=== PATIENT | male | born 1945 | race Caucasian/White ===

== ENCOUNTER 2018-07-10 17:05 | Inpatient (IN) | payer MEDICARE, OTHER ==
[2018-07-10 18:39] LABS: CKMB 1.7 ng/mL (0-6.6); Troponin I Less than 0.010 ng/mL (< 0.028)
[2018-07-10] MEDS ORDERED: Ondansetron ODT 4 MG TAB PO PRN (19:41)
[2018-07-10] MEDS ORDERED: Famotidine 20 MG TAB PO SCH (21:00)
[2018-07-10] MEDS: Sodium Chloride 0.9% 1,000 ML IV SCH (21:16)
[2018-07-10 21:36] LABS: Troponin I 0.015 ng/mL (< 0.028)
[2018-07-10] MEDS: Acetaminophen 325 MG TAB PO PRN (21:53)
[2018-07-10] MEDS: Nitroglycerin 2% Ointment 1 INCH/1 GM Packet TOP SCH (21:54)
[2018-07-10] MEDS: Heparin 5,000 UNITS/ML VIAL SC SCH (21:54)
[2018-07-11 00:23] VITALS: BMI 33.0
[2018-07-11 00:51] LABS: Troponin I 0.016 ng/mL (< 0.028)
--- NOTE | 2018-07-11 02:14 | HP ---
CHIEF COMPLAINT: Chest pain. HISTORIAN: The patient and . HISTORY OF PRESENT ILLNESS: This is a 73-year-old male with past medical history of spinal stenosis, CKD stage 3, hypertension, prostate enlargement, presented to ED with chief complaint of chest pain. Per the patient, chest pain was started on Thursday and pain started to radiate to his left shoulder and around his neck. Patient stated that on , he was in the grass at his yard. 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 The patient states that his chest pain is loc ated substernally 10/10 when it comes on and radiates to the left shoulder. The patient took tramado l which did not help. However, the patient states that morphine that was given to him at [facility] e relieve some of this pain. Patient's chest pain is exacerbated with inspiration. At this point, p atient denies any headaches, fevers, dizziness, nausea. The patient endorses vomiting x1 during the episode of chest pain on Thursday. REVIEW OF SYSTEMS: Positive for vomitus x1, chest pain, shortness of breath, and bilateral lower ext remity edema. FAMILY HISTORY: Reviewed and noncontributory. PAST MEDICAL HISTORY: Patient has BPH, spinal stenosis, CKD, hypertension, neck surgery. PAST SURGICAL HISTORY: Patient has rhinoplasty, bilateral knee replacement, carpal tunnel surgeries, C-spine, C4-C5 fusion and lumbar laminectomy. SOCIAL HISTORY: The patient denies any alcohol use, denies any illicit drug use, and denies any smok ing history. ALLERGIES: Patient is allergic to CODEINE. CURRENT MEDICATIONS: The patient is on tramadol 50 mg, metoprolol tartrate 50 mg, alfuzosin 10 mg, p antoprazole 40 mg, finasteride 5 mg, Crestor 40 mg, aspirin 81 mg, gabapentin 600 mg, Zyrtec 10 mg, m agnesium 400 mg, , multivitamins, vitamin D3, Nasacort, MiraLax. PHYSICAL EXAMINATION: VITAL SIGNS: Blood pressure is 148/85, pulse of 78, respiratory rate of 18, temperature of 98.3, and O2 sat of 98 on 2 liters nasal cannula. GENERAL: The patient is alert and oriented x3, not in acute distress. Patient is lying in bed comfo rtably. Patient is able to speak in full sentences. HEENT: Normocephalic, atraumatic. Pupils are equally round and reactive to light. Extraocular move ments are intact. No scleral icterus. Mucous membranes are moist. NECK: Supple. Trachea is midline. No meningeal signs. LUNGS: Clear to auscultation bilaterally. No wheezing, no rales, no rhonchus appreciated. CARDIOVASCULAR: Positive S1, S2, regular rate and rhythm. No murmurs, no gallops, no rubs appreciat ed. ABDOMEN: Obese. Abdomen is soft, nontender, nondistended. EXTREMITIES: The patient has suffered 5/5 upper extremity strength and 5/5 lower extremity strength. The patient do have +1 pedal edema bilaterally. Otherwise, the patient has 5/5 strength at the low er extremities with good pulses bilaterally. NEUROLOGIC: Cranial nerves II-XII grossly intact. No neurological deficits noted. SKIN: Warm, dry, and intact. IMAGING: EKG showed sinus rhythm with a rate of 74. LABORATORY DATA: 1. WBC is 11.1, hemoglobin is 12.3, hematocrit is 36.7, RDW is 12.3, platelet count is 161. 2. D-dimer is 0.59. Sodium is 141, potassium is 5.1, chloride is 106, bicarbonate is 26, anion gap of 14, creatinine is 2.48. BNP is 100.5. ASSESSMENT AND PLAN: This is a 73-year-old male with past medical history of hypertension, chronic k idney disease stage 3, being admitted for: 1. Chest pain to rule out acute coronary syndrome. At this point, the patient has received morphine and aspirin. Troponin has been done which has been negative so far. We will order an echo. We lexii l do a pharmacologic stress test. We will get Cardiology to see the patient and will follow up with cardiology's recommendations. We will continue patient on his home medications. 2. Acute on chronic kidney injury, stage 4. In the past, patient's chronic kidney disease was stage 3; however, currently GFR is 26. At this point, patient's creatinine is around the baseline, just a little increased. 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 3. History of hypertension. We will monitor the patient's blood pressure and we will give blood pre ssure medication accordingly. 4. History of benign prostatic hypertrophy. We will start patient on his home medications. 5. Cervical spine, C4-C5 fusion. We will continue patient on his home pain medications. 6. Deep venous thrombosis and gastrointestinal prophylaxis. This case has been dictated by Dr. Neto Luz on patient Feliciano Duncan.
[2018-07-11] MEDS: Sodium Chloride 0.9% 1,000 ML IV SCH (04:09)
[2018-07-11] MEDS: traMADol HCl 50 MG TAB PO PRN ×2 (04:17→17:37)
[2018-07-11 04:49] LABS: Cardiac Risk 2.5 (Less than 4.5)
[2018-07-11] MEDS: Acetaminophen 325 MG TAB PO PRN ×3 (07:54→17:36)
[2018-07-11] MEDS ORDERED: Polyethylene Glycol 3350 17 GM Packet PO PRN (08:11)
[2018-07-11] MEDS: Nitroglycerin 2% Ointment 1 INCH/1 GM Packet TOP SCH ×3 (08:11→22:36)
[2018-07-11] MEDS ORDERED: Pantoprazole 40 MG VIAL IVP SCH (08:15)
[2018-07-11] MEDS ORDERED: Morphine 2 MG/ML SYRINGE SLOW IVP SCH (08:15)
[2018-07-11 08:51] LABS: Anion Gap 13 mmol/L (10-20); BUN (Urea Nitrogen) 23 mg/dL (8.4-25.7); Calc. Creatinine Clearance 39 mL/min (70-130); Carbon Dioxide 22 mmol/L (23-31); Chloride 107 mmol/L (98-107); Estimated GFR-MDRD 24; Glucose 120 mg/dL (83-110); Potassium 6.3 mmol/L (3.5-5.1); Sodium 136 mmol/L (136-145)
[2018-07-11 08:57] LABS: #Lymphocytes 1.3 thou/uL (1.20-3.40); #Monocytes 0.9 thou/uL (0.11-0.59); %Basophils 0.3 % (0.0-1.0); %Eosinophils 0.1 % (0.0-10.0); %Lymphocytes 9.6 % (21.0-51.0); %Monocytes 6.9 % (0.0-10.0); %Neutrophils 83.1 % (42.0-75.0); Hemoglobin 11.1 g/dL (14.0-18.0); Mean Corpuscular HGB CONC 31.9 g/dL (32.0-36.0); Mean Corpuscular Hemoglobin 32.4 pg (27.0-31.0); Mean Platelet Volume 8.7 fL (7.4-10.4); Platelet Count 144 thou/uL (130-400); RBC Distribution Width 12.4 % (11.5-14.5); Red Blood Cell (RBC) Count 3.42 mill/uL (4.70-6.10); White Blood Cell (WBC) Count 13.2 thou/uL (4.8-10.8)
[2018-07-11] MEDS ORDERED: Famotidine 20 MG TAB PO SCH (09:00)
[2018-07-11] MEDS ORDERED: Aspirin 325 MG TAB PO SCH (09:00)
[2018-07-11] MEDS ORDERED: Fluticasone Propionate Nasal Spray 16 gm Bottle NASAL SCH (09:00)
[2018-07-11] MEDS ORDERED: Rosuvastatin 20 MG TAB PO SCH (09:00)
[2018-07-11] MEDS: Magnesium Oxide 400 MG TAB PO SCH (09:52)
[2018-07-11] MEDS: Pantoprazole 40 MG GRANULES PACKET PO SCH (09:52)
[2018-07-11] MEDS: Aspirin 81 mg Enteric Coated Tablet PO SCH (10:00)
[2018-07-11] MEDS: Heparin 5,000 UNITS/ML VIAL SC SCH ×2 (10:00→20:02)
[2018-07-11] MEDS: Finasteride 5 MG TAB PO SCH (10:00)
--- NOTE | 2018-07-11 10:25 | PDOC.PN ---
- Subjective Encounter Start Date: 07/11/18 Encounter Start Time: 07:20 -: old records requested/rev he has chest pain, history obtained, has some vague neck pain, shoulder pain, has some vague upper abdominal pain as well - Objective Resuscitation Status: Resuscitation Status FULL:Full Resuscitation MAR Reviewed: Yes Vital Signs & Weight: Vital Signs (12 hours) Temp Pulse Resp BP Pulse Ox 07/11/18 07:08 97.5 F L 70 20 137/71 99 07/11/18 04:13 98.1 F 63 14 116/64 97 Weight Weight 252 lb 1.6 oz I&O: 07/10/18 07/11/18 07/12/18 06:59 06:59 06:59 Intake Total 1100 Balance 1100 Result Diagrams: 07/11/18 00:20 07/11/18 00:20 Radiology Reviewed by me: Yes (chest xray reviewed) EKG Reviewed by me: Yes (nsr) Phys Exam - Physical Examination Constitutional: NAD HEENT: PERRLA, moist MMs, sclera anicteric Neck: no JVD, supple Respiratory: no wheezing, no rales, no rhonchi Cardiovascular: RRR, no significant murmur, no rub Gastrointestinal: soft, non-tender, no distention, positive bowel sounds Musculoskeletal: no edema, pulses present Neurological: non-focal, normal sensation, moves all 4 limbs Psychiatric: normal affect, A&O x 3 Skin: no rash, normal turgor Dx/Plan (1) Chest pain Code(s): R07.9 - CHEST PAIN, UNSPECIFIED Status: Acute (2) Hypertension Code(s): I10 - ESSENTIAL (PRIMARY) HYPERTENSION Status: Chronic (3) GERD (gastroesophageal reflux disease) Code(s): K21.9 - GASTRO-ESOPHAGEAL REFLUX DISEASE WITHOUT ESOPHAGITIS Status: Chronic (4) Dyslipidemia Code(s): E78.5 - HYPERLIPIDEMIA, UNSPECIFIED Status: Chronic (5) BPH (benign prostatic hyperplasia) Code(s): N40.0 - BENIGN PROSTATIC HYPERPLASIA WITHOUT LOWER URINRY TRACT SYMP Status: Chronic (6) CKD (chronic kidney disease) stage 4, GFR 15-29 ml/min Code(s): N18.4 - CHRONIC KIDNEY DISEASE, STAGE 4 (SEVERE) Status: Chronic (7) Obesity (BMI 30-39.9) Code(s): E66.9 - OBESITY, UNSPECIFIED Status: Chronic - Plan cont current plan of care * give protonix IV, as suspecting GI cause * plan for stress test, echo * cardio consulted * Dc IVF * medication reviewed as below * symptomatic treatment. Review of Systems - Review of Systems ENT: negative: Ear Pain, Ear Discharge, Nose Pain, Nose Discharge, Nose Congestion, Mouth Pain, Mouth Swelling, Throat Pain, Throat Swelling, Other Respiratory: negative: Cough, Dry, Shortness of Breath, Hemoptysis, SOB with Excertion, Pleuritic Pain, Sputum, Wheezing Cardiovascular: chest pain. negative: palpitations, orthopnea, paroxysmal nocturnal dyspnea, edema, light headedness, other Gastrointestinal: negative: Nausea, Vomiting, Abdominal Pain, Diarrhea, Constipation, Melena, Hematochezia, Other Genitourinary: negative: Dysuria, Frequency, Incontinence, Hematuria, Retention , Other Musculoskeletal: negative: Neck Pain, Shoulder Pain, Arm Pain, Back Pain, Hand Pain, Leg Pain, Foot Pain, Other Skin: negative: Rash, Lesions, Reese, Bruising, Other - Medications/Allergies Allergies/Adverse Reactions: Allergies Allergy/AdvReac Type Severity Reaction Status Date / Time codeine Allergy Verified 07/11/18 00:16 Medications: Current Medications Acetaminophen (Tylenol) 650 mg PO Q4H PRN PRN Reason: Headache/Fever/Mild Pain (1-3) Last Admin: 07/11/18 07:54 Dose: 650 mg Alfuzosin HCl (Uroxatral) 10 mg PO DAILY [facility] Aspirin (Ecotrin) 81 mg PO DAILY [facility] Last Admin: 07/11/18 10:00 Dose: 81 mg Cholecalciferol (Vitamin D3) 5,000 units PO DAILY [facility] Last Admin: 07/11/18 09:59 Dose: 5,000 units Finasteride (Proscar) 5 mg PO DAILY [facility] Last Admin: 07/11/18 10:00 Dose: 5 mg Fluticasone Propionate (Flonase Nasal [place]) 0 gm NASAL DAILY [facility] Last Admin: 07/11/18 10:01 Dose: Not Given Gabapentin (Neurontin) 600 mg PO QPM[facility] Heparin Sodium (Porcine) (Heparin) 5,000 units SC BID [facility] Last Admin: 07/11/18 10:00 Dose: 5,000 units Magnesium Oxide (Magnesium Oxide) 400 mg PO DAILY [facility] Last Admin: 07/11/18 09:52 Dose: 400 mg Metoprolol Succinate (Toprol Xl) 50 mg PO DAILY [facility] Nitroglycerin (Nitro-Bid 2% Ointment) 0.5 inch TOP Q8HR [facility] Last Admin: 07/11/18 08:11 Dose: Not Given Ondansetron HCl (Zofran Odt) 4 mg PO Q6H PRN PRN Reason: Nausea/Vomiting Pantoprazole Sodium (Protonix) 40 mg PO DAILY [facility] Last Admin: 07/11/18 09:52 Dose: 40 mg Polyethylene Glycol (Miralax) 17 gm PO DAILY PRN PRN Reason: Constipation Sodium Chloride (Flush - Normal Saline) 10 ml IVF Q12HR [facility] Last Admin: 07/11/18 10:01 Dose: 10 ml Sodium Chloride (Flush - Normal Saline) 10 ml IVF PRN PRN PRN Reason: Saline Flush Tramadol HCl (Ultram) 25 mg PO QID PRN PRN Reason: Moderate Pain (4-6) Last Admin: 07/11/18 04:17 Dose: 25 mg
[2018-07-11] MEDS ORDERED: Colchicine 0.6 MG TAB PO SCH (12:30)
[2018-07-11] MEDS: Alfuzosin 10 MG TABDR...ER PO SCH (13:23)
[2018-07-11] MEDS: Gabapentin 300 MG CAP PO SCH (17:36)
[2018-07-11] MEDS: Colchicine 0.6 MG TAB PO SCH (20:00)
[2018-07-11] MEDS: Fluticasone Propionate Nasal Spray 16 gm Bottle NASAL SCH (20:01)
[2018-07-11] MEDS ORDERED: traMADol HCl 50 MG TAB PO PRN ×2 (22:33)
[2018-07-12] MEDS: Acetaminophen 325 MG TAB PO PRN ×3 (04:07→20:03)
[2018-07-12] MEDS: Nitroglycerin 2% Ointment 1 INCH/1 GM Packet TOP SCH ×3 (07:33→20:11)
[2018-07-12] MEDS: Magnesium Oxide 400 MG TAB PO SCH (08:28)
[2018-07-12] MEDS: Aspirin 81 mg Enteric Coated Tablet PO SCH (08:28)
[2018-07-12] MEDS: Pantoprazole 40 MG GRANULES PACKET PO SCH (08:28)
[2018-07-12] MEDS: Colchicine 0.6 MG TAB PO SCH ×2 (08:28→19:59)
[2018-07-12] MEDS: Finasteride 5 MG TAB PO SCH (08:29)
[2018-07-12] MEDS: Alfuzosin 10 MG TABDR...ER PO SCH (08:29)
[2018-07-12] MEDS: Heparin 5,000 UNITS/ML VIAL SC SCH ×2 (08:29→20:00)
[2018-07-12] MEDS ORDERED: Cyclobenzaprine 10 MG TAB PO PRN (09:29)
--- NOTE | 2018-07-12 09:44 | NM ---
MYOCARDIAL PERFUSION STUDY: DATE: 07/11/2018. HISTORY: Chest pain, history of hypertension. RADIOPHARMACEUTICALS: 30 mCi Technetium 99m sestamibi, IV at stress, and 10 mCi Technetium 99m sestamibi, IV at rest. FINDINGS: There is minimal uptake of radiotracer seen throughout the left ventricular myocardium on the stress and resting acquisitions. No significant reversible defect is identified. Quantitative analysis karina ws no significant reversible defect. Gated images demonstrate mild hypokinesis involving the inferio r left ventricular wall. Normal ventricular wall thickening is present. The calculated left ventric ular ejection fraction is 65%. There is mild elevation of the transient ischemic dilatation ratio wh ich is i1.23 with upper normal being 1.22. IMPRESSION: 1. Normal myocardial perfusion study without evidence of a reversible defect seen to suggest ischemi a. 2. Mild hypokinesis inferior left ventricular wall. 3. Normal left ventricular ejection fraction of 65%. Left ventricular ejection fraction on prior s ameyady in 2009 was 67%. 4. Mild elevation of the transient ischemic dilatation ratio which is 1.23. POS: JYOTSNA
--- NOTE | 2018-07-12 10:44 | PDOC.PN ---
- Subjective Encounter Start Date: 07/12/18 Encounter Start Time: 07:30 -: old records requested/rev Patient seen and examined. No new complaints. No overnight events still has shoulder and neck muscle spasm - Objective Resuscitation Status: Resuscitation Status FULL:Full Resuscitation MAR Reviewed: Yes Vital Signs & Weight: Vital Signs (12 hours) Temp Pulse Resp BP Pulse Ox 07/12/18 07:06 98.3 F 77 20 138/74 93 L 07/12/18 05:21 81 165/90 H 07/12/18 04:18 96 07/12/18 04:09 98.2 F 79 20 178/86 H 95 Weight Weight 252 lb 1.6 oz I&O: 07/11/18 07/12/18 07/13/18 06:59 06:59 06:59 Intake Total 1100 602 Balance 1100 602 Result Diagrams: 07/11/18 00:20 07/11/18 00:20 Radiology Reviewed by me: Yes (echo, stress test noted) EKG Reviewed by me: Yes Phys Exam - Physical Examination Constitutional: NAD HEENT: PERRLA, moist MMs, sclera anicteric Neck: no JVD, supple Respiratory: no wheezing, no rales, no rhonchi Cardiovascular: RRR, no significant murmur, no rub Gastrointestinal: soft, non-tender, no distention, positive bowel sounds Musculoskeletal: no edema, pulses present Neurological: non-focal, normal sensation, moves all 4 limbs Psychiatric: normal affect, A&O x 3 Skin: no rash, normal turgor Dx/Plan (1) Chest pain Code(s): R07.9 - CHEST PAIN, UNSPECIFIED Status: Acute Qualifiers: Chest pain type: unspecified Qualified Code(s): R07.9 - Chest pain, unspecified Comment: due to possibly pericarditis (2) Hypertension Code(s): I10 - ESSENTIAL (PRIMARY) HYPERTENSION Status: Chronic (3) GERD (gastroesophageal reflux disease) Code(s): K21.9 - GASTRO-ESOPHAGEAL REFLUX DISEASE WITHOUT ESOPHAGITIS Status: Chronic (4) Dyslipidemia Code(s): E78.5 - HYPERLIPIDEMIA, UNSPECIFIED Status: Chronic (5) BPH (benign prostatic hyperplasia) Code(s): N40.0 - BENIGN PROSTATIC HYPERPLASIA WITHOUT LOWER URINRY TRACT SYMP Status: Chronic (6) CKD (chronic kidney disease) stage 4, GFR 15-29 ml/min Code(s): N18.4 - CHRONIC KIDNEY DISEASE, STAGE 4 (SEVERE) Status: Chronic (7) Obesity (BMI 30-39.9) Code(s): E66.9 - OBESITY, UNSPECIFIED Status: Chronic (8) Neck pain Code(s): M54.2 - CERVICALGIA Status: Acute - Plan cont current plan of care, plan discussed w/ family * add flexeril * continue colchicine * medication reviewed as below * symptomatic treatment * spoke with . Review of Systems - Review of Systems Eyes: negative: Pain, Vision Change, Conjunctivae Inflammation, Eyelid Inflammation, Redness, Other ENT: negative: Ear Pain, Ear Discharge, Nose Pain, Nose Discharge, Nose Congestion, Mouth Pain, Mouth Swelling, Throat Pain, Throat Swelling, Other Respiratory: negative: Cough, Dry, Shortness of Breath, Hemoptysis, SOB with Excertion, Pleuritic Pain, Sputum, Wheezing Cardiovascular: negative: chest pain, palpitations, orthopnea, paroxysmal nocturnal dyspnea, edema, light headedness, other Gastrointestinal: negative: Nausea, Vomiting, Abdominal Pain, Diarrhea, Constipation, Melena, Hematochezia, Other Genitourinary: negative: Dysuria, Frequency, Incontinence, Hematuria, Retention , Other Musculoskeletal: Neck Pain, Shoulder Pain. negative: Arm Pain, Back Pain, Hand Pain, Leg Pain, Foot Pain, Other - Medications/Allergies Allergies/Adverse Reactions: Allergies Allergy/AdvReac Type Severity Reaction Status Date / Time codeine Allergy Verified 07/11/18 00:16 Medications: Current Medications Acetaminophen (Tylenol) 650 mg PO Q4H PRN PRN Reason: Headache/Fever/Mild Pain (1-3) Last Admin: 07/12/18 04:07 Dose: 650 mg Alfuzosin HCl (Uroxatral) 10 mg PO DAILY [facility] Last Admin: 07/12/18 08:29 Dose: 10 mg Aspirin (Ecotrin) 81 mg PO DAILY [facility] Last Admin: 07/12/18 08:28 Dose: 81 mg Cholecalciferol (Vitamin D3) 5,000 units PO DAILY [facility] Last Admin: 07/12/18 08:28 Dose: 5,000 units Colchicine (Colcrys) 0.6 mg PO BID [facility] Last Admin: 07/12/18 08:28 Dose: 0.6 mg Cyclobenzaprine HCl (Flexeril) 5 mg PO TIDPRN PRN PRN Reason: Muscle Spasm Last Admin: 07/12/18 09:47 Dose: 5 mg Finasteride (Proscar) 5 mg PO DAILY [facility] Last Admin: 07/12/18 08:29 Dose: 5 mg Fluticasone Propionate (Flonase Nasal [place]) 0 gm NASAL HS [facility] Last Admin: 07/11/18 20:01 Dose: 2 spr Gabapentin (Neurontin) 600 mg PO QPM-WM [facility] Last Admin: 07/11/18 17:36 Dose: 600 mg Heparin Sodium (Porcine) (Heparin) 5,000 units SC BID [facility] Last Admin: 07/12/18 08:29 Dose: 5,000 units Magnesium Oxide (Magnesium Oxide) 400 mg PO DAILY [facility] Last Admin: 07/12/18 08:28 Dose: 400 mg Metoprolol Succinate (Toprol Xl) 50 mg PO DAILY [facility] Last Admin: 07/12/18 08:28 Dose: 50 mg Nitroglycerin (Nitro-Bid 2% Ointment) 0.5 inch TOP Q8HR [facility] Last Admin: 07/12/18 07:33 Dose: Not Given Ondansetron HCl (Zofran Odt) 4 mg PO Q6H PRN PRN Reason: Nausea/Vomiting Pantoprazole Sodium (Protonix) 40 mg PO DAILY [facility] Last Admin: 07/12/18 08:28 Dose: 40 mg Polyethylene Glycol (Miralax) 17 gm PO DAILY PRN PRN Reason: Constipation Last Admin: 07/12/18 08:44 Dose: 17 gm Sodium Chloride (Flush - Normal Saline) 10 ml IVF Q12HR [facility] Last Admin: 07/12/18 08:29 Dose: 10 ml Sodium Chloride (Flush - Normal Saline) 10 ml IVF PRN PRN PRN Reason: Saline Flush Tramadol HCl (Ultram) 50 mg PO Q6H PRN PRN Reason: PAIN SCALE 1-5 Tramadol HCl (Ultram) 100 mg PO Q6H PRN PRN Reason: PAIN SCALE 6-10 Last Admin: 07/12/18 04:05 Dose: 100 mg
--- NOTE | 2018-07-12 15:38 | CON ---
DATE OF CONSULTATION: 07/12/2018 HISTORY OF PRESENT ILLNESS: The patient is a 68-year-old gentleman with history of mitral valve prol apse who presented with chest discomfort. The patient states that he has a history of chronic valvul ar heart disease. He is followed by Dr. Hughes. The patient was in usual state of health when he developed midsternal chest discomfort. This radiated into his back. The patient states the chest di scomfort has been persistent for the past 2 days. He states whenever he takes a deep breath it seems to be worse. The chest pain has not been associated with dyspnea. PAST MEDICAL HISTORY: Significant for, 1. Mitral valve prolapse. 2. Chronic renal insufficiency. 3. Hypertension. PAST SURGICAL HISTORY: He has had a spinal surgery, knee replacement, carpal tunnel syndrome surgery , laminectomy. SOCIAL HISTORY: Nonsmoker. ALLERGIES: He is allergic to CODEINE. MEDICATIONS: See nursing list. REVIEW OF SYSTEMS: Ten-point system otherwise unremarkable. PHYSICAL EXAMINATION: GENERAL: Obese gentleman, in mild distress. VITAL SIGNS: Blood pressure 137/71. NECK: No jugular venous distention, no carotid bruits. LUNGS: Clear to auscultation. HEART: Regular rate and rhythm, normal S1, S2 with a 2/6 holosystolic murmur. ABDOMEN: Distended. EXTREMITIES: No edema. NEUROLOGIC: Nonfocal. VASCULAR: Radial pulses 2+. LABORATORY: Sodium 136, potassium was 6.3, chloride 107, bicarbonate 22, BUN 23, creatinine is 2.64. His EKG reveals him to have normal sinus rhythm with diffuse ST elevation suggestive of pericarditi s. ASSESSMENT AND PLAN: 1. Pericarditis. 2. Mitral valve prolapse. 3. Mitral regurgitation. 4. Chronic renal insufficiency. 5. Hypertension. 6. Obesity. PLAN: This gentleman presents with chest pain, EKG changes very suggestive of a pericarditis. The p atient will be treated with colchicine. We would avoid nonsteroidal medication with his severe renal insufficiency. We will follow this patient with you through his hospitalization.
[2018-07-12] MEDS ORDERED: NIFEdipine XL 30 MG TAB PO SCH (16:30)
[2018-07-12] MEDS: Gabapentin 300 MG CAP PO SCH (16:30)
[2018-07-12] MEDS: NIFEdipine XL 30 MG TAB PO SCH (16:31)
[2018-07-12] MEDS: Fluticasone Propionate Nasal Spray 16 gm Bottle NASAL SCH (19:59)
[2018-07-13] MEDS: Acetaminophen 325 MG TAB PO PRN (02:10)
[2018-07-13] MEDS: Nitroglycerin 2% Ointment 1 INCH/1 GM Packet TOP SCH (05:18)
[2018-07-13 07:14] LABS: #Eosinphils 0.2 thou/uL (0.0-0.7); #Lymphocytes 1.6 thou/uL (1.20-3.40); #Monocytes 0.5 thou/uL (0.11-0.59); #Neutrophils 4.2 thou/uL (1.40-6.50); %Basophils 0.6 % (0.0-1.0); %Eosinophils 2.8 % (0.0-10.0); %Lymphocytes 24.6 % (21.0-51.0); %Monocytes 7.8 % (0.0-10.0); %Neutrophils 64.1 % (42.0-75.0); Hemoglobin 11.2 g/dL (14.0-18.0); Mean Corpuscular HGB CONC 31.7 g/dL (32.0-36.0); Mean Corpuscular Hemoglobin 31.8 pg (27.0-31.0); Mean Platelet Volume 8.5 fL (7.4-10.4); Platelet Count 160 thou/uL (130-400); Red Blood Cell (RBC) Count 3.52 mill/uL (4.70-6.10); White Blood Cell (WBC) Count 6.5 thou/uL (4.8-10.8)
[2018-07-13 07:32] LABS: Albumin 3.3 g/dL (3.4-4.8); Anion Gap 11 mmol/L (10-20); BUN (Urea Nitrogen) 26 mg/dL (8.4-25.7); CRP (Inflammatory) 10.38 mg/dL (= or < 0.5); Calc. Creatinine Clearance 45 mL/min (70-130); Calcium 9.4 mg/dL (7.8-10.44); Carbon Dioxide 23 mmol/L (23-31); Chloride 109 mmol/L (98-107); Estimated GFR-MDRD 28; Glucose 114 mg/dL (83-110); Phosphorus 3.6 mg/dL (2.3-4.7); Potassium 4.8 mmol/L (3.5-5.1); Sodium 138 mmol/L (136-145)
[2018-07-13 07:45] VITALS: BP 159/86; TEMP 98
[2018-07-13] MEDS: Magnesium Oxide 400 MG TAB PO SCH (08:02)
[2018-07-13] MEDS: Colchicine 0.6 MG TAB PO SCH (08:02)
[2018-07-13] MEDS: Pantoprazole 40 MG GRANULES PACKET PO SCH (08:02)
[2018-07-13] MEDS: Aspirin 81 mg Enteric Coated Tablet PO SCH (08:02)
[2018-07-13] MEDS: Finasteride 5 MG TAB PO SCH (08:02)
[2018-07-13] MEDS: NIFEdipine XL 30 MG TAB PO SCH (08:02)
[2018-07-13] MEDS: Alfuzosin 10 MG TABDR...ER PO SCH (08:03)
[2018-07-13] MEDS: Heparin 5,000 UNITS/ML VIAL SC SCH (08:03)
--- NOTE | 2018-07-13 09:41 | DIS ---
PRIMARY CARE PHYSICIAN: Dr. Valente Jimenez. DATE OF ADMISSION: 07/11/2018 DATE OF DISCHARGE: 07/13/2018 DISCHARGE DISPOSITION: Home. PRIMARY DISCHARGE DIAGNOSIS: Acute pericarditis. SECONDARY DISCHARGE DIAGNOSES: Benign enlargement of prostate; chronic kidney disease, stage 4; dysl ipidemia; degenerative spine disease; gastroesophageal reflux disease; hypertension; obesity with bod y mass index 33. PRIMARY PROCEDURE/OPERATION: None. RADIOLOGICAL INVESTIGATION: Stress test negative for any ischemia. Echocardiography showed normal E F. SIGNIFICANT LABORATORY DATA: WBC 6.5, hemoglobin 11.2, platelet 160. Sodium 138, creatinine 2.30, p otassium 4.8. CRP 10.3, albumin 3.3. LDL 46. Cardiac enzymes negative. DISCHARGE MEDICATIONS: Alfuzosin 10 mg p.o. daily, aspirin 81 mg daily, cetirizine 10 mg daily, evelyn min D3 of 5000 unit p.o. daily, Proscar 5 mg p.o. daily, gabapentin 1200 mg p.o. in the evening, magn esium oxide 400 mg p.o. b.i.d., Toprol-XL 50 mg p.o. daily, Protonix 40 mg p.o. daily, multivitamin 1 tablet p.o. daily, MiraLax 17 grams p.o. daily, Crestor 40 mg p.o. daily, tramadol 25 mg q.i.d. p.r. n., Nasacort 2 sprays each nostril daily, colchicine 0.3 mg p.o. b.i.d., Flexeril 5 mg p.o. t.i.d. p. r.n., Procardia XL 30 mg p.o. daily. CONTRAINDICATIONS: None. CODE STATUS: FULL CODE. INPATIENT CONSULTANTS: Dr. Casey and Cardiology group was following while in hospital. TEST RESULTS PENDING ON DISCHARGE: None. ALLERGIES: CODEINE. DISCHARGE PLAN: Post hospital, the patient is instructed to follow up with Dr. Hughes in 7 days as well as Dr. Valente Jimenez in 1 week. HOSPITAL COURSE: A 73-year-old male who was admitted by Dr. Luz on 07/11/2018. Please see his H&P for further details. The patient presented with chest pain. His chest pain description was pleurit ic. During this admission, we did a stress test which came back normal. Echocardiography showed nor mal EF. His telemetry remained unremarkable. His cardiac enzymes remain negative. Based on his magaly cription, we suspected acute pericarditis and started on colchicine. With colchicine, the patient's condition is clinically improving. He will follow up with Cardiology after discharge in 1 or 2 weeks , as well as with his primary care physician. All new medication prescription given to him. I have seen and examined this patient at bedside and plan of care discussed with the patient and his . On the day of discharge, his vital signs stable, his blood pressure was high and that is why igor dickson added Procardia XL yesterday. Otherwise, his cardiac examination, lung examination and other physi amaury examination is normal.
== END 2018-07-13 10:19 | disposition home or self-care (01) | DRG 315 ==
LOC: ERS 17:05 → 2SW 20:52 → OBSVTOIN 07-11 13:35
PROVIDERS: ADMIT Internal Medicine Infectious Disease; ATTEND Internal Medicine Infectious Disease
DX: I30.9 Acute pericarditis, unspecified (principal); N18.4 Chronic kidney disease, stage 4 (severe); N17.9 Acute kidney failure, unspecified; M62.838 Other muscle spasm; K21.9 Gastro-esophageal reflux disease without esophagitis; E78.5 Hyperlipidemia, unspecified; N40.0 Benign prostatic hyperplasia without lower urinary tract symptoms; I12.9 Hypertensive chronic kidney disease with stage 1 through stage 4 chronic kidney disease, or unspecified chronic kidney disease; M54.2 Cervicalgia; E66.01 Morbid (severe) obesity due to excess calories; Z68.33 Body mass index [BMI] 33.0-33.9, adult; I34.1 Nonrheumatic mitral (valve) prolapse; I34.0 Nonrheumatic mitral (valve) insufficiency; Z87.891 Personal history of nicotine dependence
CPT/HCPCS: 36415; 78452; 80048; 80061; 80069; 83880; 84484; 85025; 86140; 93005; 93010; 93017; 93306; 94760; A4216; A9500; C9113; J0153; J1644; J2270

== ENCOUNTER 2021-10-07 14:33 | Outpatient (CLI) | payer MEDICARE, OTHER | END 2021-10-07 14:34 | disposition home or self-care (01) | LOC: BICULT 14:33 | PROVIDERS: ATTEND Family Medicine | DX: N18.9 Chronic kidney disease, unspecified (principal); K80.20 Calculus of gallbladder without cholecystitis without obstruction | CPT/HCPCS: 76770 ==

== ENCOUNTER 2024-07-28 21:20 | Inpatient (IN) | payer MEDICARE, OTHER ==
[2024-07-28 22:43] LABS: #Basophils Less than 0.03 10x3/uL (0.0-0.2); %Basophils 0.2 % (0.0-1.0); %Eosinophils 0.9 % (0.0-10.0); %Lymphocytes 9.5 % (21.0-51.0); %Monocytes 4.6 % (0.0-10.0); %Neutrophils 84.8 % (42.0-75.0); Hematocrit 31.6 % (42.0-52.0); Hemoglobin 10.2 g/dL (14.0-18.0); Mean Corpuscular HGB CONC 32.3 g/dL (32.0-36.0); Mean Corpuscular Hemoglobin 32.5 pg (27.0-31.0); Mean Corpuscular Volume 100.6 fL (78.0-98.0); Mean Platelet Volume 11.4 fL (7.4-10.4); Platelet Count 150 10x3/uL (130-400); RBC Distribution Width 13.9 % (11.5-14.5); Red Blood Cell (RBC) Count 3.14 mill/uL (4.70-6.10)
[2024-07-28 23:04] LABS: ALT (SGPT) 12 U/L (8-55); AST (SGOT) 25 U/L (5-34); Albumin 3.3 g/dL (3.4-4.8); Alkaline Phosphatase 68 U/L (40-110); Anion Gap 13 mmol/L (10-20); BUN (Urea Nitrogen) 31 mg/dL (8.4-25.7); Bilirubin, Total 0.4 mg/dL (0.2-1.2); Calc. Creatinine Clearance 0 mL/min (70-130); Calcium 10.1 mg/dL (7.8-10.44); Carbon Dioxide 24 mmol/L (23-31); Chloride 105 mmol/L (98-107); Estimated GFR 21; Globulin 3.1 g/dL (2.4-3.5); Glucose 119 mg/dL (83-110); Protein, Total 6.4 g/dL (5.8-8.1); Sodium 138 mmol/L (136-145)
[2024-07-28] MEDS ORDERED: Ondansetron PF 4 MG/2 ML Vial IVP PRN (23:40)
[2024-07-29 00:34] LABS: Bacteria/HPF None Seen HPF (None Seen); Bilirubin Negative (Negative); Blood, Urine Negative (Negative); Clarity Clear (Clear); Glucose, Urine (Dipstick) Normal (Negative); Ketone, Urine Negative (Negative); Leukocyte Negative Leu/uL (Negative); Nitrite Negative (Negative); Protein, Urine (Dipstick) 20 mg/dL (Neg-Trace); RBC/HPF 0-3 HPF (0-3); Specific Gravity, Urine 1.005 (1.002-1.036); Squamous Epithelial None Seen HPF (0-3); Urobilinogen Normal mg/dL (Less than 2); WBC/HPF 0-3 HPF (0-3)
[2024-07-29 00:36] LABS: Urine Culture Reflex No No
[2024-07-29 00:51] LABS: Magnesium 2.9 mg/dL (1.6-2.6)
[2024-07-29] MEDS ORDERED: Acetaminophen 325 MG TAB ONE (02:26)
[2024-07-29] MEDS: Acetaminophen 325 MG TAB PO PRN (02:41)
[2024-07-29] MEDS ORDERED: ALPRAZolam 1 MG TAB ONE (02:46)
[2024-07-29 02:55] LABS: #Basophils Less than 0.03 10x3/uL (0.0-0.2); #Eosinophils Less than 0.03 10x3/uL (0.0-0.7); %Basophils 0.2 % (0.0-1.0); %Eosinophils 0.2 % (0.0-10.0); %Lymphocytes 15.6 % (21.0-51.0); %Neutrophils 78.8 % (42.0-75.0); Hematocrit 30.9 % (42.0-52.0); Hemoglobin 9.9 g/dL (14.0-18.0); Mean Corpuscular Hemoglobin 32.9 pg (27.0-31.0); Mean Corpuscular Volume 102.7 fL (78.0-98.0); Mean Platelet Volume 11.2 fL (7.4-10.4); Platelet Count 152 10x3/uL (130-400); RBC Distribution Width 13.9 % (11.5-14.5); Red Blood Cell (RBC) Count 3.01 mill/uL (4.70-6.10)
[2024-07-29 03:00] LABS: ALT (SGPT) 12 U/L (8-55); AST (SGOT) 25 U/L (5-34); Albumin 3.2 g/dL (3.4-4.8); Alkaline Phosphatase 64 U/L (40-110); Anion Gap 13 mmol/L (10-20); BUN (Urea Nitrogen) 31 mg/dL (8.4-25.7); Bilirubin, Total 0.4 mg/dL (0.2-1.2); Calc. Creatinine Clearance 0 mL/min (70-130); Carbon Dioxide 24 mmol/L (23-31); Cardiac Risk 2.7 (Less than 4.5); Chloride 106 mmol/L (98-107); Cholesterol 109 mg/dl (< 200 Desired); Estimated GFR 19; Globulin 3.2 g/dL (2.4-3.5); Glucose 125 mg/dL (83-110); HDL Cholesterol 40 mg/dL (>60 Neg Risk); LDL Cholesterol, Calculated 58 mg/dL; Potassium 4.3 mmol/L (3.5-5.1); Protein, Total 6.4 g/dL (5.8-8.1); Sodium 139 mmol/L (136-145); Triglycerides 57 mg/dL (Less than 150)
[2024-07-29 03:08] LABS: Troponin I 0.515 ng/mL (< 0.028)
[2024-07-29] MEDS ORDERED: Heparin 5,000 UNITS/ML VIAL ONE (08:44)
[2024-07-29] MEDS ORDERED: Aspirin Chewable 81 MG TAB ONE (08:44)
[2024-07-29] MEDS ORDERED: Pantoprazole DR 40 MG TAB ONE (08:45)
[2024-07-29] MEDS ORDERED: Famotidine 20 MG TAB PO SCH (09:00)
[2024-07-29] MEDS ORDERED: Famotidine/PF 20 mg/2ml Vial SLOW IVP SCH (09:00)
[2024-07-29] MEDS: Pantoprazole DR 40 MG TAB PO SCH (10:13)
[2024-07-29] MEDS ORDERED: Aspirin 81 mg Enteric Coated Tablet ONE (10:14)
[2024-07-29] MEDS: Aspirin 81 mg Enteric Coated Tablet PO SCH (10:17)
[2024-07-29] MEDS: Calcitriol 0.25 MCG CAP PO SCH (10:18)
[2024-07-29] MEDS: Loratadine 10 MG TAB PO SCH (10:18)
[2024-07-29] MEDS: Heparin 5,000 UNITS/ML VIAL SC SCH (10:20)
[2024-07-29] MEDS ORDERED: Acetaminophen 650 MG/20.3 ML UDCUP ONE (10:30)
[2024-07-29 11:07] LABS: Troponin I 0.576 ng/mL (< 0.028)
[2024-07-29 17:18] VITALS: BMI 24.2
[2024-07-29] MEDS: Atorvastatin Calcium 40 MG TAB PO SCH (21:04)
[2024-07-30 04:12] LABS: #Basophils 0.03 10x3/uL (0.0-0.2); %Basophils 0.6 % (0.0-1.0); %Eosinophils 5.8 % (0.0-10.0); %Lymphocytes 27.9 % (21.0-51.0); %Neutrophils 57.3 % (42.0-75.0); Hematocrit 30.9 % (42.0-52.0); Hemoglobin 9.6 g/dL (14.0-18.0); Mean Corpuscular HGB CONC 31.1 g/dL (32.0-36.0); Mean Platelet Volume 11.8 fL (7.4-10.4); Platelet Count 154 10x3/uL (130-400); RBC Distribution Width 13.9 % (11.5-14.5)
[2024-07-30 04:24] LABS: Anion Gap 10 mmol/L (10-20); BUN (Urea Nitrogen) 30 mg/dL (8.4-25.7); Calc. Creatinine Clearance 23 mL/min (70-130); Calcium 9.6 mg/dL (7.8-10.44); Carbon Dioxide 25 mmol/L (23-31); Chloride 107 mmol/L (98-107); Estimated GFR 21; Glucose 92 mg/dL (83-110); Potassium 4.1 mmol/L (3.5-5.1); Sodium 138 mmol/L (136-145)
[2024-07-30] MEDS: Ondansetron ODT 4 MG TAB PO PRN (08:46)
[2024-07-30 11:58] VITALS: BP 129/78; TEMP 98.5
== END 2024-07-30 16:00 | disposition home or self-care (01) | DRG 69 ==
LOC: ERS 21:20 → ERHOLD 23:40 → OBSVTOIN 07-29 10:07 → 2SE 07-29 17:01
PROVIDERS: ADMIT Internal Medicine; ATTEND Internal Medicine
PROC: 4A00X4Z Measurement of Central Nervous Electrical Activity, External Approach (ICD-10-PCS; principal; 2024-07-29)
DX: G45.9 Transient cerebral ischemic attack, unspecified (principal); G93.41 Metabolic encephalopathy; N18.4 Chronic kidney disease, stage 4 (severe); I35.1 Nonrheumatic aortic (valve) insufficiency; K21.9 Gastro-esophageal reflux disease without esophagitis; G62.9 Polyneuropathy, unspecified; I12.9 Hypertensive chronic kidney disease with stage 1 through stage 4 chronic kidney disease, or unspecified chronic kidney disease; Z88.5 Allergy status to narcotic agent; Z79.82 Long term (current) use of aspirin; Z79.899 Other long term (current) drug therapy; N40.0 Benign prostatic hyperplasia without lower urinary tract symptoms; E78.5 Hyperlipidemia, unspecified; E66.9 Obesity, unspecified; Z68.24 Body mass index [BMI] 24.0-24.9, adult
CPT/HCPCS: 36415; 70450; 70551; 71045; 80048; 80053; 80061; 81001; 83735; 84484; 85025; 87040; 87086; 93005; 95813; G0378; J1644; Q0162

== ENCOUNTER 2024-09-06 12:58 | Inpatient (IN) | payer MEDICARE, OTHER ==
[2024-09-06 13:52] LABS: #Basophils Less than 0.03 10x3/uL (0.0-0.2); %Basophils 0.3 % (0.0-1.0); %Eosinophils 2.8 % (0.0-10.0); %Lymphocytes 18.1 % (21.0-51.0); %Monocytes 6.6 % (0.0-10.0); %Neutrophils 71.9 % (42.0-75.0); Hematocrit 30.6 % (42.0-52.0); Hemoglobin 9.6 g/dL (14.0-18.0); Mean Corpuscular HGB CONC 31.4 g/dL (32.0-36.0); Mean Corpuscular Hemoglobin 32.4 pg (27.0-31.0); Mean Corpuscular Volume 103.4 fL (78.0-98.0); Mean Platelet Volume 12.5 fL (7.4-10.4); Platelet Count 108 10x3/uL (130-400); RBC Distribution Width 14.3 % (11.5-14.5); Red Blood Cell (RBC) Count 2.96 mill/uL (4.70-6.10)
[2024-09-06 14:03] LABS: ALT (SGPT) 20 U/L (8-55); AST (SGOT) 44 U/L (5-34); Albumin 3.6 g/dL (3.4-4.8); Alkaline Phosphatase 72 U/L (40-110); Anion Gap 14 mmol/L (10-20); BUN (Urea Nitrogen) 35 mg/dL (8.4-25.7); Calc. Creatinine Clearance 0 mL/min (70-130); Calcium 10.9 mg/dL (7.8-10.44); Carbon Dioxide 24 mmol/L (23-31); Chloride 105 mmol/L (98-107); Estimated GFR 25; Globulin 3.7 g/dL (2.4-3.5); Glucose 95 mg/dL (83-110); Potassium 4.4 mmol/L (3.5-5.1); Protein, Total 7.3 g/dL (5.8-8.1); Sodium 139 mmol/L (136-145)
[2024-09-06 14:15] LABS: Troponin I 0.307 ng/mL (< 0.028)
[2024-09-06 14:16] LABS: Macrocytosis SLIGHT = 6-15 cells HPF (0-5); Platelet Adequacy Comment Platelets Decreased
[2024-09-06] MEDS ORDERED: Furosemide 40 MG (4 mL) VIAL ONE (15:46)
[2024-09-06 17:35] LABS: Troponin I 0.339 ng/mL (< 0.028)
[2024-09-06 20:04] LABS: Critical Call Chem Troponin I RESULT DECREASING; Troponin I 0.322 ng/mL (< 0.028)
[2024-09-06 21:14] LABS: Troponin I 0.337 ng/mL (< 0.028)
[2024-09-06] MEDS ORDERED: Vancomycin Dose by Levels Sliding Scale (Wt <71) FS SCH (21:30)
[2024-09-06] MEDS: Vancomycin (BATCH) 1.5 GM in Premix 1 BAG IVPB SCH (21:33)
[2024-09-06] MEDS: Acetaminophen 325 MG TAB PO PRN (21:58)
[2024-09-06] MEDS: Cefepime 1 GM in Sodium Chloride 0.9% 100 ML IVPB SCH (22:44)
[2024-09-07] MEDS: Furosemide 40 MG (4 mL) VIAL SLOW IVP SCH (05:15)
[2024-09-07 05:28] LABS: #Basophils Less than 0.03 10x3/uL (0.0-0.2); %Basophils 0.3 % (0.0-1.0); %Eosinophils 3.5 % (0.0-10.0); %Lymphocytes 14.8 % (21.0-51.0); %Monocytes 7.5 % (0.0-10.0); %Neutrophils 73.6 % (42.0-75.0); Hemoglobin 8.6 g/dL (14.0-18.0); Mean Corpuscular HGB CONC 31.9 g/dL (32.0-36.0); Mean Corpuscular Hemoglobin 31.9 pg (27.0-31.0); Platelet Count 104 10x3/uL (130-400); RBC Distribution Width 14.2 % (11.5-14.5)
[2024-09-07] MEDS: Enoxaparin 30 MG (0.3 mL) SYRINGE SC SCH (09:03)
[2024-09-07 11:40] LABS: ALT (SGPT) 16 U/L (8-55); AST (SGOT) 39 U/L (5-34); Albumin 3.3 g/dL (3.4-4.8); Alkaline Phosphatase 70 U/L (40-110); Anion Gap 12 mmol/L (10-20); BUN (Urea Nitrogen) 39 mg/dL (8.4-25.7); Bilirubin, Total 0.8 mg/dL (0.2-1.2); Calc. Creatinine Clearance 24 mL/min (70-130); Calcium 10.3 mg/dL (7.8-10.44); Carbon Dioxide 23 mmol/L (23-31); Chloride 106 mmol/L (98-107); Estimated GFR 22; Globulin 3.4 g/dL (2.4-3.5); Glucose 97 mg/dL (83-110); Potassium 4.3 mmol/L (3.5-5.1); Protein, Total 6.7 g/dL (5.8-8.1); Sodium 137 mmol/L (136-145)
[2024-09-07 11:49] LABS: Critical Call Chem Troponin I RESULT DECREASING; Troponin I 0.312 ng/mL (< 0.028)
[2024-09-07] MEDS: Gabapentin 300 MG CAP PO SCH (16:54)
[2024-09-07] MEDS ORDERED: FLUOCINOLONE ACETONIDE 0.01% TOP SCH (21:00)
[2024-09-07] MEDS: Magnesium Oxide 400 MG TAB PO SCH (21:20)
[2024-09-07] MEDS: Rosuvastatin 20 MG TAB PO SCH (21:20)
[2024-09-08 05:46] LABS: #Basophils 0.03 10x3/uL (0.0-0.2); %Basophils 0.6 % (0.0-1.0); %Eosinophils 4.5 % (0.0-10.0); %Lymphocytes 19.8 % (21.0-51.0); %Monocytes 8.8 % (0.0-10.0); %Neutrophils 66.1 % (42.0-75.0); Hematocrit 26.6 % (42.0-52.0); Hemoglobin 8.8 g/dL (14.0-18.0); Mean Corpuscular HGB CONC 33.1 g/dL (32.0-36.0); Mean Corpuscular Hemoglobin 33.1 pg (27.0-31.0); Mean Platelet Volume 12.8 fL (7.4-10.4); Platelet Count 119 10x3/uL (130-400); RBC Distribution Width 14.3 % (11.5-14.5); Red Blood Cell (RBC) Count 2.66 mill/uL (4.70-6.10)
[2024-09-08 06:26] LABS: ALT (SGPT) 16 U/L (8-55); AST (SGOT) 34 U/L (5-34); Alkaline Phosphatase 65 U/L (40-110); Anion Gap 13 mmol/L (10-20); BUN (Urea Nitrogen) 47 mg/dL (8.4-25.7); Bilirubin, Total 0.7 mg/dL (0.2-1.2); Calc. Creatinine Clearance 22 mL/min (70-130); Calcium 9.9 mg/dL (7.8-10.44); Carbon Dioxide 25 mmol/L (23-31); Chloride 104 mmol/L (98-107); Estimated GFR 20; Globulin 3.1 g/dL (2.4-3.5); Glucose 95 mg/dL (83-110); Potassium 3.9 mmol/L (3.5-5.1); Protein, Total 6.1 g/dL (5.8-8.1); Sodium 138 mmol/L (136-145)
[2024-09-08 06:31] VITALS: BMI 22.4
[2024-09-08] MEDS: Multivitamin W/ Minerals 1 TAB PO SCH (08:53)
[2024-09-08] MEDS: Calcitriol 0.25 MCG CAP PO SCH (08:53)
[2024-09-08] MEDS: Pantoprazole DR 40 MG TAB PO SCH (08:54)
[2024-09-08] MEDS: Loratadine 10 MG TAB PO SCH (08:54)
[2024-09-08] MEDS: Aspirin 81 mg Enteric Coated Tablet PO SCH (08:54)
[2024-09-08] MEDS: Ipratropium Bromide 0.06% Nasal Inhaler 15ml EA NARE SCH (16:47)
[2024-09-09 06:55] LABS: #Basophils 0.04 10x3/uL (0.0-0.2); %Basophils 0.7 % (0.0-1.0); %Eosinophils 5.5 % (0.0-10.0); %Lymphocytes 20.2 % (21.0-51.0); %Monocytes 8.6 % (0.0-10.0); %Neutrophils 64.6 % (42.0-75.0); Hematocrit 27.3 % (42.0-52.0); Hemoglobin 8.8 g/dL (14.0-18.0); Mean Corpuscular HGB CONC 32.2 g/dL (32.0-36.0); Mean Corpuscular Hemoglobin 32.2 pg (27.0-31.0); Mean Platelet Volume 12.5 fL (7.4-10.4); Platelet Count 135 10x3/uL (130-400); RBC Distribution Width 14.2 % (11.5-14.5); Red Blood Cell (RBC) Count 2.73 mill/uL (4.70-6.10)
[2024-09-09 07:07] LABS: Anion Gap 12 mmol/L (10-20); BUN (Urea Nitrogen) 49 mg/dL (8.4-25.7); Calc. Creatinine Clearance 21 mL/min (70-130); Calcium 10.2 mg/dL (7.8-10.44); Carbon Dioxide 24 mmol/L (23-31); Chloride 107 mmol/L (98-107); Estimated GFR 20; Glucose 90 mg/dL (83-110); Potassium 4.1 mmol/L (3.5-5.1); Sodium 139 mmol/L (136-145)
[2024-09-09] MEDS: Furosemide 40 MG TAB PO SCH (09:36)
[2024-09-09] MEDS ORDERED: Magnevist 469MG/ML 20 ML VIAL ONE (10:46)
[2024-09-09] MEDS: Albumin 25% 25 GM (100 mL) BOT IVPB SCH (11:14)
[2024-09-09] MEDS: Polyethylene Glycol 3350 17 GM Packet PO PRN (20:31)
[2024-09-10 04:49] LABS: #Basophils Less than 0.03 10x3/uL (0.0-0.2); %Basophils 0.4 % (0.0-1.0); %Eosinophils 4.8 % (0.0-10.0); %Lymphocytes 20.6 % (21.0-51.0); %Neutrophils 64.8 % (42.0-75.0); Hematocrit 25.9 % (42.0-52.0); Hemoglobin 8.5 g/dL (14.0-18.0); Mean Corpuscular HGB CONC 32.8 g/dL (32.0-36.0); Mean Corpuscular Hemoglobin 32.4 pg (27.0-31.0); Mean Corpuscular Volume 98.9 fL (78.0-98.0); Mean Platelet Volume 11.8 fL (7.4-10.4); Platelet Count 122 10x3/uL (130-400); RBC Distribution Width 14.2 % (11.5-14.5); Red Blood Cell (RBC) Count 2.62 mill/uL (4.70-6.10)
[2024-09-10 05:06] LABS: Anion Gap 14 mmol/L (10-20); BUN (Urea Nitrogen) 53 mg/dL (8.4-25.7); Calc. Creatinine Clearance 22 mL/min (70-130); Calcium 10.3 mg/dL (7.8-10.44); Carbon Dioxide 25 mmol/L (23-31); Chloride 103 mmol/L (98-107); Estimated GFR 21; Glucose 95 mg/dL (83-110); Potassium 3.9 mmol/L (3.5-5.1); Sodium 138 mmol/L (136-145)
[2024-09-10 09:59] VITALS: TEMP 97.6
[2024-09-10 11:35] LABS: Iron 60 ug/dL (65-175); Iron Binding Capacity, Total 248 mcg/dL (261-462)
[2024-09-10 12:49] VITALS: BP 132/63
[2024-09-11] MEDS ORDERED: Ferrous Sulfate 325 MG TAB PO SCH (08:00)
[2024-09-11] MEDS ORDERED: Torsemide 20 MG TAB PO SCH (09:00)
== END 2024-09-10 16:17 | disposition home or self-care (01) | DRG 682 ==
LOC: ERS 12:58 → ERHOLD 15:41 → OBS 20:12 → OBSVTOIN 09-07 15:02
PROVIDERS: ADMIT Family Medicine; ATTEND Internal Medicine
DX: I12.9 Hypertensive chronic kidney disease with stage 1 through stage 4 chronic kidney disease, or unspecified chronic kidney disease (principal); I50.33 Acute on chronic diastolic (congestive) heart failure; N18.4 Chronic kidney disease, stage 4 (severe); N17.9 Acute kidney failure, unspecified; M48.00 Spinal stenosis, site unspecified; N40.0 Benign prostatic hyperplasia without lower urinary tract symptoms; E78.5 Hyperlipidemia, unspecified; R79.89 Other specified abnormal findings of blood chemistry; M19.90 Unspecified osteoarthritis, unspecified site; R06.89 Other abnormalities of breathing; N28.1 Cyst of kidney, acquired; D63.1 Anemia in chronic kidney disease; D50.9 Iron deficiency anemia, unspecified; Z79.82 Long term (current) use of aspirin; Z79.890 Hormone replacement therapy; Z79.899 Other long term (current) drug therapy
CPT/HCPCS: 36415; 71045; 71250; 74183; 80048; 80053; 82040; 82728; 83540; 83550; 83880; 84484; 85025; 87081; 93005; 93306; 93798; 96372; 96374; 96375; 96376; G0378; J0692; J1650; J1940; J3370; P9047